=== PATIENT | male | born 1965 | race Caucasian/White ===

== ENCOUNTER 2021-06-15 07:13 | Day surgery (SDC) | payer OTHER ==
[2021-06-13 12:36] VITALS: BMI 32.5
[~2021-06-15 07:13] MED LIST: LACTATED RINGERS 1,000 ML IV SCH; SODIUM CHLORIDE 0.9% 1,000 ML IV SCH
[2021-06-15 07:32] VITALS: RESP 18; TEMP 98.4
[2021-06-15 08:01] LABS: Calcium 8.3 mg/dL (8.4-10.2); Potassium 4.8 mmol/L (3.5-5.1)
[2021-06-15] MEDS ORDERED: PROPOFOL 10 MG/ML 20 ML VIAL IV ONE (08:21)
[2021-06-15] MEDS ORDERED: MIDAZOLAM 2 MG/2 ML VIAL ONE (08:21)
[2021-06-15] MEDS ORDERED: KETAMINE 10 MG/ML 20 ML VIAL ONE (08:21)
[2021-06-15] MEDS ORDERED: BENZOCAINE SPRAY 1 CAN TOPICAL ONE (09:08)
[2021-06-15] MEDS ORDERED: SODIUM CHLORIDE 0.9% 1,000 ML IV SCH (09:45)
--- NOTE | 2021-06-15 10:22 | ECHOT ---
TRANSESOPHAGEAL ECHOCARDIOGRAM Mr. Fields is a 55-year-old male with a history of end-stage renal disease who recently was noted to be in atrial flutter and evidence of cardiomyopathy and in view of that, recommendation beginning were made regarding cardioversion. PROCEDURE: After explaining the procedure to the patient its risks and the complications, his blood pressure, heart rate, O2 saturation was monitored. After obtaining sedated state per Anesthesia Department. The probe was introduced into the esophagus without difficulty. Images were obtained. Following that, the probe was removed. FINDINGS: Biatrial enlargement was noted. Left atrial appendage is normal. Left ventricular size is normal. There is evidence of severe global hypokinesis with ejection fraction estimated at 30 to 35%. The aortic valve, mitral valve and tricuspid valve are normal. Descending thoracic aorta appears to be normal. There was no pericardial effusion. Contrast bubble study revealed no shunting across the interatrial septum. Doppler pulse wave and color Doppler obtained and revealed mild mitral with mild to moderate tricuspid regurgitation. There was no shunting by color Doppler study. CONCLUSION: 1. Biatrial enlargement with normal appearance left atrial appendage. 2. Normal left ventricular size with severe global hypokinesis. 3. Mild mitral with mild to moderate tricuspid regurgitation. 4. No shunting across the interatrial septum. MMODL / IJN: [id number] /
--- NOTE | 2021-06-15 10:51 | CE ---
CARDIAC ELECTROPHYSIOLOGY REPORT PROCEDURE PERFORMED: Cardioversion. INDICATION: Atrial flutter. PROCEDURE DETAILS: After explaining the procedure to the patient its risks and the complications, his blood pressure, heart rate, O2 saturation was monitored and after obtaining transesophageal echocardiogram and obtaining sedated state per anesthesia department, a synchronized biphasic cardioversion using 100 joules was performed with orthodoxy of normal sinus rhythm. There was no immediate complication. ENRIQUE / HAYDENN: [id number] /
[2021-06-15 10:58] VITALS: BP 138/61; PULSE 91
[2021-06-15] MEDS ORDERED: APIXABAN 2.5 MG TABLET PO SCH (12:00)
[2021-06-15] MEDS ORDERED: CALCIUM ACETATE 667 MG TAB PO SCH (17:30)
[2021-06-15] MEDS ORDERED: amLODIPine 5 MG TAB PO SCH (21:00)
[2021-06-15] MEDS ORDERED: FUROSEMIDE 80 MG TAB PO SCH (21:00)
[2021-06-15] MEDS ORDERED: INSULIN DETEMIR (LEVEMIR) 100 UNIT/ML SYR SQ SCH (21:00)
[2021-06-15] MEDS ORDERED: METOPROLOL SUCCINATE (ER) 50 MG TAB.ER.24H PO SCH (21:00)
[2021-06-15] MEDS ORDERED: ATORVASTATIN 20 MG TAB PO SCH (21:00)
[2021-06-16] MEDS ORDERED: LEVOTHYROXINE 88 MCG TAB PO SCH (06:30)
[2021-06-16] MEDS ORDERED: glipiZIDE 5 MG TAB PO SCH (07:30)
[2021-06-16] MEDS ORDERED: ERGOCALCIFEROL 1,250 MCG (50,000 IU) CAPSULE PO SCH (09:00)
== END 2021-06-15 11:11 | disposition home or self-care (01) ==
LOC: CATHCVL 07:13
PROVIDERS: ATTEND Internal Medicine Interventional Cardiology
DX: I48.3 Typical atrial flutter (principal); I07.1 Rheumatic tricuspid insufficiency; E78.5 Hyperlipidemia, unspecified; E11.22 Type 2 diabetes mellitus with diabetic chronic kidney disease; I12.0 Hypertensive chronic kidney disease with stage 5 chronic kidney disease or end stage renal disease; N18.6 End stage renal disease; Z20.818 Contact with and (suspected) exposure to other bacterial communicable diseases; F17.210 Nicotine dependence, cigarettes, uncomplicated; Z79.84 Long term (current) use of oral hypoglycemic drugs; Z79.890 Hormone replacement therapy; Z79.4 Long term (current) use of insulin; Z79.899 Other long term (current) drug therapy
CPT/HCPCS: 93312; 93320; 93325; 92960; 80048; 87635; J2250; J2704

== ENCOUNTER 2021-07-11 12:57 | Day surgery (SDC) | payer OTHER ==
[2021-07-10 14:19] VITALS: BMI 32.5
[2021-07-11 13:39] LABS: Glucose,Whole Blood 161 mg/dL (75-99)
[2021-07-11 13:48] LABS: Basophils % (A) 0 %; Eosinophils # (A) 0.2 k/uL (0-0.7); Eosinophils % (A) 4 %; HCT 39.4 % (39.0-53.0); HGB 11.7 gm/dL (13.0-17.5); Hypochromasia Moderate; Lymphocytes # (A) 1.6 k/uL (1.0-4.8); Lymphocytes % (A) 26 %; MCH 28.2 pg (25.0-35.0); MCHC 29.8 g/dL (31.0-37.0); MCV 94.7 fL (80.0-100.0); Mean Platelet Volume 9.3; Monocytes # (A) 0.3 k/uL (0-1.0); Monocytes % (A) 5 %; Neutrophils # (A) 3.9 k/uL (1.3-7.7); Neutrophils % (A) 64 %; Platelet Count 224 k/uL (150-450); RBC 4.16 m/uL (4.30-5.90); RDW 15.9 % (11.5-15.5); WBC 6.2 k/uL (3.8-10.6)
[2021-07-11 14:19] LABS: Calcium 8.1 mg/dL (8.4-10.2); Magnesium 1.9 mg/dL (1.6-2.3); Potassium 5.2 mmol/L (3.5-5.1)
[2021-07-11] MEDS ORDERED: LIDOCAINE 1% INJ 10MG/ML (20 ML MDV) ONE ×2 (16:02→16:05)
[2021-07-11] MEDS ORDERED: GLYCOPYRROLATE 0.2 MG/ML 2 ML VIAL ONE (16:05)
[2021-07-11] MEDS ORDERED: MIDAZOLAM 2 MG/2 ML VIAL ONE (16:05)
[2021-07-11] MEDS ORDERED: FUROSEMIDE 10 MG/ML 2 ML VIAL ONE (16:05)
[2021-07-11] MEDS ORDERED: fentaNYL (PF) 50 MCG/ML 2 ML AMP ONE (16:05)
[2021-07-11] MEDS ORDERED: PROPOFOL 10 MG/ML 20 ML VIAL IV ONE (16:05)
[2021-07-11] MEDS ORDERED: ROCURONIUM 10 MG/ML (5 ML VIAL) IV ONE (16:05)
[2021-07-11] MEDS ORDERED: NEOSTIGMINE 1 MG/ML 10 ML VIAL ONE (16:05)
[2021-07-11] MEDS ORDERED: LIDOCAINE 1% INJ 10MG/ML (20 ML MDV) SQ ONE (16:47)
[2021-07-11] MEDS ORDERED: HEPARIN SODIUM (1,000 UNIT/ML) 1,000 UNIT in SODIUM CHLORIDE 0.9% 1,000 ML IRRIGATION ONE (17:00)
--- NOTE | 2021-07-11 18:26 | P.PN ---
Progress Note - Text Patient underwent successful atrial flutter ablation He is on ELIQUIS 2.5 g twice daily Please do not stop ELIQUIS for any procedure for the next 6 weeks and the minimum Dialysis tomorrow. Request for [address] Reynoso for placement of AV fistula It is important that the AV fistula be placed on the right arm In addition AV fistula placement should be delayed for at least 6 weeks. Anticoagulation should not be held for any reason for the next 6 weeks Risk of stroke
--- NOTE | 2021-07-11 18:32 | P.PRLE ---
RE: Jose Fields Dear Dr. Maged Garcia underwent successful ablation for atrial flutter. I am starting him on amiodarone 400 mg by mouth daily This dose will be reduced to 200 mg by mouth daily after one month He will continue ELIQUIS 2.5 mg twice daily for stroke prevention He is awaiting AV fistula placement and he may proceed with this only after 6 weeks from today ELIQUIS should not be held for any elective procedure for the next 6 weeks For AV fistula placement I have recommended that it be placed in the RIGHT arm The patient tolerated the procedure well without any acute complications Thank you for entrusting me with the care of the patient Warm regards Sincerely Silvino West
[2021-07-11 19:22] LABS: Glucose,Whole Blood 99 mg/dL (75-99)
[2021-07-11] MEDS ORDERED: APIXABAN 5 MG TAB PO SCH (21:00)
[2021-07-11] MEDS ORDERED: INSULIN DETEMIR (LEVEMIR) 100 UNIT/ML SYR SQ SCH (21:00)
[2021-07-11] MEDS ORDERED: amLODIPine 5 MG TAB PO SCH (21:00)
[2021-07-11] MEDS ORDERED: ATORVASTATIN 20 MG TAB PO SCH (21:00)
[2021-07-11] MEDS: APIXABAN 2.5 MG TABLET PO SCH (22:05)
[2021-07-11] MEDS: METOPROLOL SUCCINATE (ER) 50 MG TAB.ER.24H PO SCH (22:05)
[2021-07-11] MEDS: FUROSEMIDE 80 MG TAB PO SCH (22:05)
[2021-07-11] MEDS: AMIODARONE 200 MG TAB PO SCH (22:05)
[2021-07-11] MEDS: CALCIUM ACETATE 667 MG TAB PO SCH (22:05)
[2021-07-12] MEDS ORDERED: LEVOTHYROXINE 88 MCG TAB PO SCH (06:30)
[2021-07-12] MEDS ORDERED: glipiZIDE 5 MG TAB PO SCH (07:30)
[2021-07-12 07:59] LABS: Glucose,Whole Blood 75 mg/dL (75-99)
[2021-07-12 08:09] VITALS: BP 145/96; PULSE 86; RESP 18; TEMP 97.4
[2021-07-12] MEDS: FUROSEMIDE 80 MG TAB PO SCH (08:44)
[2021-07-12] MEDS: METOPROLOL SUCCINATE (ER) 50 MG TAB.ER.24H PO SCH (08:44)
[2021-07-12] MEDS: APIXABAN 2.5 MG TABLET PO SCH (08:44)
[2021-07-12] MEDS: AMIODARONE 200 MG TAB PO SCH (08:44)
[2021-07-12] MEDS: CALCIUM ACETATE 667 MG TAB PO SCH (08:44)
--- NOTE | 2021-07-12 11:34 | P.DS ---
Providers Attending physician: Silvino West Consults: 07/11/21 18:15 Consult Physician Routine Consulting Provider: Ryan Reynoso Consult Reason/Comments: Right-sided AV fistula, after 6 weeks, no sooner Do you want consulting provider notified?: Yes, Notify in am Primary care physician: Cb Edwards [facility] Course: Patient is resting comfortably in a chair He did well after his atrial flutter ablation and maintain sinus rhythm No chest discomfort he does have a sore throat no dizziness no lightheadedness does not appear short of breath His groins of healed well no hematoma Blood pressure 147/95 mmHg afebrile 97.4F pulse rate in the 80s and 90s normal respirations Breath sounds are clear no rhonchi no crackles Heart sounds are regular S1 and S2 are soft and normal Abdomen is soft nontender No JVD Impression Symptomatic atrial flutter, sustained, typical atrial flutter Rapid ventricular response on account of that Status post successful ablation yesterday for Chronic kidney disease on dialysis Awaiting AV fistula formation Cardio myopathy Plan Continue ELIQUIS Short term amiodarone for 3-4 months only The patient was instructed to continue ELIQUIS without interruption for the next 6 weeks AV fistula surgery only after 6 weeks Dialysis today, patient will go to the dialysis center once he leaves this place Reassessment of LV function in about 3 months Follow-up Dr. Romeo within a week Plan - Discharge Summary Discharge Rx Participant: Yes New Discharge Prescriptions: New RX: Amiodarone [Cordarone] 400 mg PO DAILY #30 tablet Continue RX: Ergocalciferol [Vitamin D2 (1250 Mcg = 23760 Iu)] 1,250 mcg PO FR RX: glipiZIDE [Glucotrol] 5 mg PO AC-BRKFST RX: amLODIPine [Norvasc] 5 mg PO HS RX: Calcium Acetate [PhosLo] 667 mg PO BID RX: Atorvastatin [Lipitor] 20 mg PO HS RX: Metoprolol Succinate (ER) [Toprol XL] 50 mg PO BID RX: Levothyroxine Sodium [Synthroid] 88 mcg PO DAILY RX: Insulin Glargine [Lantus Vial] 15 unit SQ HS RX: Furosemide [Lasix] 80 mg PO BID RX: Apixaban [Eliquis] 2.5 mg PO BID #180 tab Discharge Medication List RX: Atorvastatin [Lipitor] 20 mg PO HS 06/13/21 [History] RX: Calcium Acetate [PhosLo] 667 mg PO BID 06/13/21 [History] RX: Ergocalciferol [Vitamin D2 (1250 Mcg = 70924 Iu)] 1,250 mcg PO FR 06/13/21 [History] RX: Furosemide [Lasix] 80 mg PO BID 06/13/21 [History] RX: Insulin Glargine [Lantus Vial] 15 unit SQ HS 06/13/21 [History] RX: Levothyroxine Sodium [Synthroid] 88 mcg PO DAILY 06/13/21 [History] RX: Metoprolol Succinate (ER) [Toprol XL] 50 mg PO BID 06/13/21 [History] RX: amLODIPine [Norvasc] 5 mg PO HS 06/13/21 [History] RX: glipiZIDE [Glucotrol] 5 mg PO AC-BRKFST 06/13/21 [History] RX: Apixaban [Eliquis] 2.5 mg PO BID #180 tab 06/15/21 [Rx] RX: Amiodarone [Cordarone] 400 mg PO DAILY #30 tablet 07/11/21 [Rx] Follow up Appointment(s)/Referral(s): Silvino West MD [STAFF PHYSICIAN] - As Needed (Follow Dr. Romeo/sarah Madera in 1 week) Lisa Romeo MD [STAFF PHYSICIAN] - 1 Week (OFFICE WILL CALL YOU WITH APPOINTMENT DATE/TIME.) Ryan Reynoso MD [STAFF PHYSICIAN] - 08/09/21 1:30 pm (NO SURGERY FOR 6 WEEKS, PT CANNOT GO OFF ELIQUIS UNTIL THEN.) Patient Instructions/Handouts: Cardiac Ablation (DC) Activity/Diet/Wound Care/Special Instructions: Post EP study - Ablation instructions 1. Keep access sites dry for 2 days. 2. No heavy lifting or straining for 2 days. 3. Avoid bending the hips repeatedly for 2 days. 4. You may go up and down stairs slowly Call if the following is noted 1. Bleeding, increasing swelling or pain at the access sites. 2. Increasing chest discomfort, especially upon taking a deep breath. 3. Increasing shortness of breath, at rest or with exertion. 4. Undue cough / phlegm 5. Difficulty or pain while swallowing. 6. Pain or change in color in the extremities. 7. Fever, chills, rigors. 8. Increasing headache or neurologic symptoms. 9. Dizziness, fainting, palpitations Do not stop ELIQUIS Discharge Disposition: HOME SELF-CARE
--- NOTE | 2021-08-01 15:13 | P.EPPROC ---
- EP Procedure Note Electrophysiology Procedure Note: Diagnosis Symptomatic typical atrial flutter Proposed procedure Diagnostic EP study and atrial flutter ablation Details Patient was brought to the EP lab in a fasting state. Written informed consent was obtained prior to the procedure The patient was in atrial flutter at the start of the study Atrial tachycardia cycle length 215 ms Venous sheaths were placed in the right left femoral veins Diagnostic, mapping and ablation cath was placed Intracardiac echo was performed No evidence for left atrial appendage thrombus Ravi sinus mapping performed He will tricuspid isthmus mapping performed Entrainment mapping performed He will tricuspid isthmus dependency confirmed Electrical cardioversion performed successfully to sinus rhythm Procedure was performed in sinus rhythm RF ablation cath was used along with a long sheath RF ablation was performed in the cavo tricuspid isthmus A complete anatomic line of block was made Bidirectional block was confirmed with differential pacing AH interval 67 ms, HV interval 43 ms, sinus cycle length 876 ms MT 170 ms and QT interval 4-95 ms Sinus recovery times at 600, 504 100 ms were 1050, 941 and 1196 ms. Corresponding corrected sinus node recovery times were normal AV node Wenckebach block 390 ms VA Wenckebach block 530 ms All sheaths were removed. Hemostasis was assured using Vascade closure device Result Successful atrial flutter ablation Plan Continue anticoagulation AV fistula after 6 weeks
== END 2021-07-12 10:23 | disposition home or self-care (01) ==
LOC: CATHEP 12:57 → 6NMEDSUR 18:17 → CATHEP 07-12 10:23
PROVIDERS: ATTEND Internal Medicine Clinical Cardiac Electrophysiology
DX: I48.92 Unspecified atrial flutter (principal); I42.9 Cardiomyopathy, unspecified; N18.6 End stage renal disease; Z79.01 Long term (current) use of anticoagulants; Z99.2 Dependence on renal dialysis; Z20.822 Contact with and (suspected) exposure to COVID-19
CPT/HCPCS: 92960; 93662; 93613; 93653; 80048; 84443; 83735; 84450; 84460; 85025; 87635; C1769 ×3; C1894; C1760; C1766; C1730; C1759; C1732; J2250; J1940; J2710; J2001; J3010; J1644; J2704